=== PATIENT | female | born 1970 | race Caucasian/White ===

== ENCOUNTER 2017-03-11 19:32 | Emergency (ER) | payer SELFPAY ==
[~2017-03-11] VITALS: Ht 162.6 cm; Wt 59.0 kg
--- NOTE | 2017-03-11 23:27 | NUR ---
Patient discharged to home in stable conditon. Written and verbal after care instructions given as well as RX. Patient verbalizes understanding of instructions.
[2017-03-11 23:29] VITALS: BP 125/80
== END 2017-03-11 23:31 | disposition home or self-care (01) ==
LOC: ER 19:33
DX: J20.8 Acute bronchitis due to other specified organisms (principal); B34.9 Viral infection, unspecified
CPT/HCPCS: A4663

== ENCOUNTER 2017-12-16 15:38 | Emergency (ER) | payer OTHER ==
[~2017-12-16] VITALS: Ht 165.1 cm; Wt 61.2 kg
[2017-12-16 16:02] LABS: *BILIRUBIN,URIN NEGATIVE (NEGATIVE); *BLOOD, URINE 3+ (NEGATIVE); *CLARITY,URINE SLIGHTLY CLOUDY (CLEAR); *KETONES,URINE NEGATIVE (NEGATIVE); *PROTEIN,URINE NEGATIVE (NEGATIVE); *UROBILINOGEN,URINE 0.2 E.U./dl (NORMAL); LEUKOCYTE ESTERASE ,URINE NEGATIVE (NEGATIVE); NITRITE, URINE NEGATIVE (NEGATIVE); UGLUCOSE NEGATIVE (NEGATIVE)
[2017-12-16 16:06] LABS: *COLOR,URINE RED (YELLOW)
[2017-12-16 16:07] LABS: *URINE HCG, QUAL NEGATIVE (NEGATIVE); RBC,URINE TNTC /HPF (0-3); SQUAMOUS EPITHELIAL CELL,UR FEW /HPF (NONE SEEN)
[2017-12-16 16:08] LABS: BASOPHILS % (AUTO) 0.4 % (0.0-2.0); EOSINOPHILS # (AUTO) 0.1 K/uL (0.0-0.7); EOSINOPHILS % (AUTO) 1.1 % (0.0-7.0); HEMATOCRIT 34.8 % (31.2-41.9); HEMOGLOBIN 11.7 g/dL (10.9-14.3); LYMPHOCYTES # (AUTO) 1.3 K/uL (20.0-40.0); LYMPHOCYTES % (AUTO) 13.7 % (20.5-51.5); MEAN CORPUSCULAR HEMOGLOBIN 29.6 uug (24.7-32.8); MEAN CORPUSCULAR HGB CONC 34 g/dL (32.3-35.6); MEAN CORPUSCULAR VOLUME 87.7 fL (75.5-95.3); MONOCYTES # (AUTO) 0.7 K/uL (2.0-10.0); MONOCYTES % (AUTO) 7.8 % (0.0-11.0); NEUTROPHILS # (AUTO) 7.1 K/uL (1.8-8.9); PLATELET COUNT (AUTO) 315 K/uL (179-408); RED BLOOD CELL COUNT(AUTO) 3.96 MIL/uL (3.63-4.92); WHITE BLOOD COUNT (AUTO) 9.2 K/uL (3.8-11.8)
[2017-12-16 16:15] LABS: CREATININE 0.8 mg/dL (0.6-1.3); POTASSIUM 3.9 mmol/L (3.5-5.1)
[2017-12-16 16:21] LABS: BILIRUBIN,DIRECT 0.1 mg/dL (0.0-0.2); BILIRUBIN,TOTAL 0.4 mg/dL (0.2-1.0); TOTAL PROTEIN, SERUM 8.2 g/dL (6.4-8.2)
[2017-12-16 17:07] VITALS: BP 111/77
[2017-12-16] MEDS ORDERED: ACETAMINOPHEN ES 500 MG TABLET ONE (17:09)
[2017-12-16] MEDS ORDERED: ACETAMINOPHEN ES 500 MG TABLET PO ONE (17:15)
== END 2017-12-16 17:10 | disposition home or self-care (01) ==
LOC: ER 15:40
DX: N39.0 Urinary tract infection, site not specified (principal); R10.84 Generalized abdominal pain
CPT/HCPCS: 36415; 83690; 84703; 85025; A4663; A9150

== ENCOUNTER 2017-12-18 20:26 | Emergency (ER) | payer OTHER ==
[~2017-12-18] VITALS: Ht 154.9 cm; Wt 61.2 kg
[2017-12-18] MEDS ORDERED: DOCU-141 PO (20:37)
[2017-12-18] MEDS ORDERED: NITR100C12 PO (20:37)
--- NOTE | 2017-12-18 20:52 | NUR ---
MARY JAIME AT BEDSIDE.
[2017-12-18] MEDS ORDERED: PANTOPRAZOLE SODIUM 40 MG TABLET.DR PO ONE ×2 (21:00→21:08)
[2017-12-18] MEDS ORDERED: KETOROLAC TROMETHAMINE 30 MG INJ IM ONE (21:00)
--- NOTE | 2017-12-18 21:00 | NUR ---
[employer] AT BEDSIDE.
[2017-12-18 21:08] LABS: BASOPHILS % (AUTO) 0.3 % (0.0-2.0); EOSINOPHILS # (AUTO) 0.1 K/uL (0.0-0.7); EOSINOPHILS % (AUTO) 1.5 % (0.0-7.0); HEMATOCRIT 33.3 % (31.2-41.9); HEMOGLOBIN 11.5 g/dL (10.9-14.3); LYMPHOCYTES # (AUTO) 1.2 K/uL (20.0-40.0); LYMPHOCYTES % (AUTO) 13.7 % (20.5-51.5); MEAN CORPUSCULAR HEMOGLOBIN 29.9 uug (24.7-32.8); MEAN CORPUSCULAR HGB CONC 35 g/dL (32.3-35.6); MEAN CORPUSCULAR VOLUME 86.7 fL (75.5-95.3); MONOCYTES # (AUTO) 0.6 K/uL (2.0-10.0); MONOCYTES % (AUTO) 7.4 % (0.0-11.0); NEUTROPHILS # (AUTO) 6.6 K/uL (1.8-8.9); NEUTROPHILS % (AUTO) 77.1 % (38.5-71.5); PLATELET COUNT (AUTO) 342 K/uL (179-408); RED BLOOD CELL COUNT(AUTO) 3.84 MIL/uL (3.63-4.92); WHITE BLOOD COUNT (AUTO) 8.5 K/uL (3.8-11.8)
[2017-12-18] MEDS ORDERED: KETOROLAC TROMETHAMINE 30 MG INJ ONE (21:08)
[2017-12-18 21:30] LABS: CREATININE 0.7 mg/dL (0.6-1.3)
[2017-12-18 21:38] LABS: BILIRUBIN,DIRECT 0.1 mg/dL (0.0-0.2); BILIRUBIN,TOTAL 0.3 mg/dL (0.2-1.0); TOTAL PROTEIN, SERUM 7.8 g/dL (6.4-8.2)
--- NOTE | 2017-12-18 21:48 | NUR ---
US TECH AT BEDSIDE.
--- NOTE | 2017-12-18 22:26 | NUR ---
Patient discharged to home in stable conditon. Written and verbal after care instructions given. Patient verbalizes understanding of instructions. PT D/C W/ PRESCRIPTIONS. ALL BELONGINGS W/ PT. PT SELF-AMBULATED WITHOUT DIFFICULTY.
[2017-12-18 22:27] VITALS: BP 132/76
== END 2017-12-18 22:29 | disposition home or self-care (01) ==
LOC: ER 20:27
DX: R10.84 Generalized abdominal pain (principal)
CPT/HCPCS: 36415; 76856; 80048; 80076; 83690; 85025; 96372; 99285; J1885; A4663

== ENCOUNTER 2017-12-20 14:43 | Emergency (ER) | payer OTHER ==
[~2017-12-20] VITALS: Ht 154.9 cm; Wt 61.2 kg
[~2017-12-20 14:43] MED LIST: DOCU-141 PO; NITR100C12 PO
--- NOTE | 2017-12-20 15:47 | NUR ---
Patient discharged to home in stable conditon. Written and verbal after care instructions given. Patient verbalizes understanding of instructions.
== END 2017-12-20 15:48 | disposition home or self-care (01) ==
LOC: ER 14:43
DX: R10.84 Generalized abdominal pain (principal)
CPT/HCPCS: A4663

== ENCOUNTER 2021-08-20 13:36 | Emergency (ER) | payer OTHER ==
[~2021-08-20] VITALS: Ht 157.5 cm; Wt 63.0 kg
--- NOTE | 2021-08-20 13:48 | NUR ---
Dr. Henson at bedside for evaluation.
--- NOTE | 2021-08-20 13:50 | NUR ---
Patient is a 51 year old female who presents to the ER with complaints of tongue numbness, mouth tilt stated by patient, and weakness. No facial droop, facial asymmetry, or extremity drifting present. Patient has clear speech, AO x 4. Patient also complains of nose bleed that happened on Thursday, and a feeling of weakness after this occasion.
--- NOTE | 2021-08-20 14:13 | NUR ---
Patient discharged to home in stable condition. Written and verbal after care instructions given. Patient verbalizes understanding of instructions. Stressed follow up or return to ER for worsening s/s.
[2021-08-20 14:14] VITALS: BP 110/70
== END 2021-08-20 14:14 | disposition home or self-care (01) ==
LOC: ER 13:36
DX: R20.2 Paresthesia of skin (principal); R04.0 Epistaxis; R53.83 Other fatigue; Z98.890 Other specified postprocedural states
CPT/HCPCS: A4663

== ENCOUNTER 2022-02-07 19:23 | Emergency (ER) | payer OTHER ==
[~2022-02-07] VITALS: Ht 157.5 cm; Wt 64.4 kg
[2022-02-07] MEDS ORDERED: ASPIRIN 325 MG TABLET PO ONE (20:15)
[2022-02-07] MEDS ORDERED: LIDOCAINE VISCUS 2% 15 ML UDC MM ONE (20:15)
[2022-02-07] MEDS ORDERED: KETOROLAC TROMETHAMINE 15 MG INJ IVP ONE (20:15)
[2022-02-07] MEDS ORDERED: MAG HYDROX/AL HYDROX/SIMETH 30 ML LIQUID UDC PO ONE (20:15)
[2022-02-07 20:22] LABS: HEMATOCRIT 38.2 % (31.2-41.9); MEAN CORPUSCULAR HEMOGLOBIN 30.1 uug (24.7-32.8); MEAN CORPUSCULAR VOLUME 90.6 fL (75.5-95.3); PLATELET COUNT (AUTO) 263 K/uL (179-408)
--- NOTE | 2022-02-07 20:26 | NUR ---
pATIENT WITH C/O CHEST BURNING X 1 WK, DENIES ANY PAIN, NO S/S OF ANY DISTRESS NOTED. INFORMED OF PLAN OF CARE AT THIS TIME. BEDSIDE EKG WAS DONE FOR MD REVIEW, #20G ESTAB[facility], BLOOD COLLECTED AND SENT TO LAB.
[2022-02-07 20:33] LABS: CREATININE 0.6 mg/dL (0.6-1.3)
[2022-02-07] MEDS ORDERED: KETOROLAC TROMETHAMINE 15 MG INJ ONE (20:33)
[2022-02-07] MEDS ORDERED: ASPIRIN 325 MG TABLET ONE (20:34)
[2022-02-07] MEDS ORDERED: MAG HYDROX/AL HYDROX/SIMETH 30 ML LIQUID UDC ONE (20:35)
[2022-02-07] MEDS ORDERED: LIDOCAINE VISCUS 2% 15 ML UDC ONE (20:36)
[2022-02-07 20:38] LABS: BILIRUBIN,TOTAL 0.2 mg/dL (0.2-1.0); TOTAL PROTEIN, SERUM 7.4 g/dL (6.4-8.2)
--- NOTE | 2022-02-07 20:46 | NUR ---
PATIENT MEDICATED PER ORDER, CONTINUES TO SIT AT BEDSIDE AWAITING RESULTS.
--- NOTE | 2022-02-07 21:18 | NUR ---
PATIENT STATES THAT THE BURNING FEELING IS GONE AT THIS TIME.
--- NOTE | 2022-02-07 21:22 | NUR ---
SWABS DONE AND SENT TO LAB.
--- NOTE | 2022-02-07 21:42 | NUR ---
PATIENT STATES FEELS MUCH BETTER, ACI GIVEN, REMAINS STABLE FOR DISCHARGE HOME SALINE LOCK REMOVED.
[2022-02-07 21:46] VITALS: BP 132/74
== END 2022-02-07 21:48 | disposition home or self-care (01) ==
LOC: ER 19:23
DX: R07.9 Chest pain, unspecified (principal); Z82.49 Family history of ischemic heart disease and other diseases of the circulatory system
CPT/HCPCS: 99285; 96374; 71045; 87426; 80053; 83690; 85025; 87400; 84484; 36415; 93005; J1885; A4663

== ENCOUNTER 2023-07-15 02:39 | Emergency (ER) | payer OTHER ==
[~2023-07-15] VITALS: Ht 162.6 cm; Wt 63.5 kg
[2023-07-15] MEDS ORDERED: SODIUM/POT/SOD CHL OPHT WASH 120 ML BOTTLE ONE (03:04)
[2023-07-15] MEDS ORDERED: CIPROFLOXACIN 0.3% OPHT DROP 2.5 ML BOTTLE ONE (03:04)
[2023-07-15] MEDS ORDERED: CIPR5DRO EACHEYE (03:10)
[2023-07-15] MEDS: CIPROFLOXACIN 0.3% OPHT DROP 2.5 ML BOTTLE OP ONE (03:17)
[2023-07-15] MEDS: SODIUM/POT/SOD CHL OPHT WASH 120 ML BOTTLE OP ONE (03:17)
[2023-07-15 03:26] VITALS: O2SAT 97
== END 2023-07-15 03:20 | disposition home or self-care (01) ==
LOC: ER 02:45
DX: H10.33 Unspecified acute conjunctivitis, bilateral (principal); Z79.899 Other long term (current) drug therapy
CPT/HCPCS: A4606